=== PATIENT | female | born 1960 | race Caucasian/White ===

== ENCOUNTER 2017-01-02 17:48 | Emergency (ER) | payer BC ==
[~2017-01-02] VITALS: Ht 160 cm; Wt 78.8 kg
[~2017-01-02 17:48] MED LIST: IBUP800T25 PO
[2017-01-02 17:55] VITALS: Ht 160 cm; Wt 78.8 kg
[2017-01-02 20:06] LABS: ADD SCAN DIFF NO
[2017-01-02 20:14] LABS: BASOPHIL # 0.1 10^3/ul (0.0-0.1); BASOPHILS % 0.7 % (0.0-2.0); EOSINOPHILS # 0.4 10^3/ul (0.0-0.5); EOSINOPHILS % 3.7 % (0.0-7.0); HEMATOCRIT 41.6 % (37.0-47.0); LYMPHOCYTES # 3.1 10^3/ul (0.8-2.9); LYMPHOCYTES % 33.2 % (15.0-51.0); MEAN CORPUSCULAR HGB CONC 33.7 g/dl (32.0-37.0); MEAN CORPUSCULAR VOLUME 86.1 fl (82.0-101.0); MEAN PLATELET VOLUME 10.7 fl (7.4-10.4); MONOCYTE # 0.6 10^3/ul (0.3-0.9); MONOCYTES % 6.8 % (0.0-11.0); NEUTROPHIL # 5.2 10^3/ul (1.6-7.5); NEUTROPHILS % 55.2 % (39.0-77.0); PLATELET COUNT 377 10^3/UL (140-415); RED BLOOD COUNT 4.83 10^6/ul (4.20-5.40); RED CELL DISTRIBUTION WIDTH 12.8 % (11.5-14.5); WHITE BLOOD COUNT 9.4 10^3/ul (4.8-10.8)
[2017-01-02 20:23] LABS: INR 0.87; PROTIME 11.8 Sec (12.2-14.2); PT RATIO 0.9
[2017-01-02 20:24] LABS: PARTIAL THROMBOPLASTIN TIME 39.9 Sec (25.0-35.0)
[2017-01-02 20:32] LABS: ALANINE AMINOTRANSFERASE 26 IU/L (13-69); ALBUMIN 5.1 g/dl (3.3-4.9); ALBUMIN/GLOBULIN RATIO 1.41; ALKALINE PHOSPHATASE 131 IU/L (42-121); ANION GAP 14 (8-16); ASPARTATE AMINO TRANSFERASE 17 IU/L (15-46); BILIRUBIN,INDIRECT 0.1 mg/dl (0-1.1); BILIRUBIN,TOTAL 0.1 mg/dl (0.2-1.3); BLOOD UREA NITROGEN 19 mg/dl (7-20); CALCIUM 10.2 mg/dl (8.4-10.2); CARBON DIOXIDE 28 mmol/L (21-31); CHLORIDE 100 mmol/L (97-110); CREATININE 0.69 mg/dl (0.44-1.00); GLUCOSE 252 mg/dl (70-220); POTASSIUM 3.9 mmol/L (3.5-5.1); SODIUM 138 mmol/L (135-144); TOTAL PROTEIN 8.7 g/dl (6.1-8.1)
[2017-01-02 20:41] LABS: D-DIMER 591.75 ng/ml (<460)
[2017-01-02 20:49] LABS: TROPONIN-I < 0.012 ng/ml (0.00-0.12)
--- NOTE | 2017-01-02 20:54 | RADRPT ---
PROCEDURE: Ultrasound of the bilateral lower extremity venous system. CLINICAL INDICATION: Bilateral leg pain and swelling, deep venous thrombosis TECHNIQUE: Echeverria scale with and without compression, color doppler, spectral doppler of the venous system of the bilateral lower extremities was performed. Venous augmentation maneuvers were utilized . COMPARISON: No prior studies are available for comparison. FINDINGS: RIGHT: Common femoral vein: Patent. Femoral vein: Patent. Popliteal vein: Patent. Calf veins: Patent. No soft tissue abnormalities are identified. LEFT: Common femoral vein: Patent. Femoral vein: Patent. Popliteal vein: Patent. Calf veins: Patent. No soft tissue abnormalities are identified. IMPRESSION: No evidence of a deep vein thrombosis within the bilateral lower extremities. RPTAT: AADD .Kodak Chan MD, MD Date Time Electronically viewed and signed by .Kodak Chan MD, on 01/02/2017 20:54 .B/
--- NOTE | 2017-01-02 22:11 | RADRPT ---
PROCEDURE: Chest. CLINICAL INDICATION: Chest pain. TECHNIQUE: Single frontal view of the chest was obtained. COMPARISON: None. FINDINGS: The cardiac silhouette is magnified. The aortic arch is unremarkable. There is no focal consolidat ion, vascular congestion or pleural effusion. There is no pneumothorax. IMPRESSION: No evidence for active cardiopulmonary disease. .Allan Deluca MD, MD Date Time Electronically viewed and signed by .Allan Deluca MD, MD on 01/02/2017 22:11 .T/
--- NOTE | 2017-01-02 22:19 | ERD ---
ER Documentation Chief Complaint Date/Time DATE: 01/02/17 TIME: 22:10 Chief Complaint BODY ACHES, CHILLS X 4 DAYS HPI This is a 56-year-old female with past medical history for anemia, hypercholesterolemia and diabetes mellitus type 2, presenting to the emergency department with multiple complaints. Patient states she has had bilateral lower extremity pain and burning that started at her feet and has traveled upward to bilateral Bilateral posterior thighs over the past 3 months. Patient reports generalized body aches and chills. No fevers. Patient has intermittent chest pain that radiates to upper back with shortness of breath. Patient also reports chest wall pain. No cough, stridor or labored breathing. Patient has nausea however no vomiting or diarrhea. No abdominal pain. ROS All systems reviewed and are negative except as per history of present illness. Medications Home Meds Active Scripts Ibuprofen* (Ibuprofen*) 800 Mg Tab, 800 MG PO Q6H Y for PAIN, #30 TAB Prov:THEODORE BERTRAND PA-C 01/10/15 Allergies Allergies: Coded Allergies: No Known Allergy (Unverified , 01/10/15) PMhx/Soc Hx Miscellaneous Medical Probl: Yes (DM) Hx Alcohol Use: No Hx Substance Use: No Hx Tobacco Use: No Smoking Status: Never smoker Physical Exam Vitals Vital Signs Date Time Temp Pulse Resp B/P Pulse Ox O2 Delivery O2 Flow Rate FiO2 01/02/17 17:55 98.1 99 18 117/70 99 Physical Exam Const: No acute distress, alert Head: Atraumatic Eyes: Normal Conjunctiva ENT: Normal External Ears, Nose and Mouth. Neck: Full range of motion..~ No meningismus. Resp: Clear to auscultation bilaterally. No wheezing, rhonchi or crackles. No stridor or labored breathing. Cardio: Regular rate and rhythm, no murmurs Abd: Soft, non tender, non distended. Normal bowel sounds Skin: No petechiae or rashes Back: No midline or flank tenderness. No CVA tenderness. Ext: No cyanosis, or edema Neur: Awake and alert Psych: Normal Mood and Affect Result Diagram: 01/02/17195401/02/171954 Results 24 hrs Laboratory Tests Test 01/02/17 19:55 White Blood Count 9.410^3/ul Red Blood Count 4.8310^6/ul Hemoglobin 14.0g/dl Hematocrit 41.6% Mean Corpuscular Volume 86.1fl Mean Corpuscular Hemoglobin 29.0pg Mean Corpuscular Hemoglobin Concent 33.7g/dl Red Cell Distribution Width 12.8% Platelet Count 79950^3/UL Mean Platelet Volume 10.7fl Neutrophils % 55.2% Lymphocytes % 33.2% Monocytes % 6.8% Eosinophils % 3.7% Basophils % 0.7% Nucleated Red Blood Cells % 0.0/100WBC Neutrophils # 5.210^3/ul Lymphocytes # 3.110^3/ul Monocytes # 0.610^3/ul Eosinophils # 0.410^3/ul Basophils # 0.110^3/ul Nucleated Red Blood Cells # 0.010^3/ul Prothrombin Time 11.8Sec Prothrombin Time Ratio 0.9 INR International Normalized Ratio 0.87 Activated Partial Thromboplast Time 39.9Sec D-Dimer 591.75ng/ml D-Dimer Comment Sodium Level 138mmol/L Potassium Level 3.9mmol/L Chloride Level 100mmol/L Carbon Dioxide Level 28mmol/L Anion Gap 14 Blood Urea Nitrogen 19mg/dl Creatinine 0.69mg/dl Glucose Level 252mg/dl Calcium Level 10.2mg/dl Total Bilirubin 0.1mg/dl Direct Bilirubin 0.00mg/dl Indirect Bilirubin 0.1mg/dl Aspartate Amino Transf (AST/SGOT) 17IU/L Alanine Aminotransferase (ALT/SGPT) 26IU/L Alkaline Phosphatase 131IU/L Troponin I < 0.012ng/ml Total Protein 8.7g/dl Albumin 5.1g/dl Globulin 3.60g/dl Albumin/Globulin Ratio 1.41 Procedures/[place] [id number] Radiology Main Line: [phone] DIAGNOSTIC IMAGING REPORT Patient: GIRISH APARICIO : 1960 Age: 56 Sex: F MR #: [id number] DOS: 01/02/171943 Ordering MD: REYNA RIVERS NP Location: [facility] Room/Bed: PROCEDURE: Chest. CLINICAL INDICATION: Chest pain. TECHNIQUE: Single frontal view of the chest was obtained. COMPARISON: None. FINDINGS: The cardiac silhouette is magnified. The aortic arch is unremarkable. There is no focal consolidation, vascular congestion or pleural effusion. There is no pneumothorax. IMPRESSION: No evidence for active cardiopulmonary disease. [place] [id number] Radiology Main Line: [phone] DIAGNOSTIC IMAGING REPORT Patient: GIRISH APARICIO : 1960 Age: 56 Sex: F MR #: [id number] DOS: 01/02/171943 Ordering MD: REYNA RIVERS NP Location: [facility] Room/Bed: PROCEDURE: Ultrasound of the bilateral lower extremity venous system. CLINICAL INDICATION: Bilateral leg pain and swelling, deep venous thrombosis TECHNIQUE: Echeverria scale with and without compression, color doppler, spectral doppler of the venous system of the bilateral lower extremities was performed. Venous augmentation maneuvers were utilized. COMPARISON: No prior studies are available for comparison. FINDINGS: RIGHT: Common femoral vein: Patent. Femoral vein: Patent. Popliteal vein: Patent. Calf veins: Patent. No soft tissue abnormalities are identified. LEFT: Common femoral vein: Patent. Femoral vein: Patent. Popliteal vein: Patent. Calf veins: Patent. No soft tissue abnormalities are identified. IMPRESSION: No evidence of a deep vein thrombosis within the bilateral lower extremities. EKG: As interpreted by myself and Dr. Arreaga. Rate/Rhythm: Normal sinus rhythm with heart rate 86 bpm QRS, ST, T-waves: No changes consistent w/ acute ischemia Impression: No evidence of ischemia or arrhythmia MDM: This is a 56-year-old female presenting to the emergency department with multiple complaints. Patient states for the past 3 months she has had pain and burning that started at her feet and has traveled upward to posterior calf and thighs. No swelling or erythema. Patient also reports intermittent chest pain that radiates to upper back with shortness of breath. Patient also has chest wall pain. Physical exam is overall unremarkable. Vital signs are stable. No fevers or chills. Heart rate is normal, no tachycardia. EKG shows normal sinus rhythm with heart rate 86 bpm. Chest x-ray as reviewed by radiologist as no evidence for active cardiopulmonary disease. Ultrasound of bilateral lower extremities venous system as reviewed by radiologist as no evidence of a deep vein thrombosis within the bilateral lower extremities. CBC shows no significant anemia or infection CMP shows glucose 252, mildly elevated alkaline phosphatase of 131 otherwise unremarkable. Patient has history of diabetes type 2 and is currently taking metformin and Januvia. PT 11.8 INR 0.87 PTT 39.9 D-dimer 591.75 Influenza swab a and B negative Consulted Dr. Arreaga regarding this patient and we agree that patient is appropriate for outpatient management. Patient remains alert, oriented and cooperative. Vital signs are stable. Oxygen saturation 99% on room air. Respirations 18. No fevers or chills. Differential diagnosis includes but not limited to pneumonia, bronchitis, pleurisy, costochondritis, gastroesophageal reflux,musculoskeletal chest pain and esophageal spasm. Low suspicion for acute coronary syndrome, pulmonary embolism, pneumothorax, aortic dissection and myocardial infarction. Patient is appropriate for outpatient management and will be discharged as stable. Instructed patient to follow up with primary care provider in the next 24-48 hours. Return to ED for worsening pain, abdominal pain, vomiting, diarrhea , high fever or any new or worsening symptoms. Patient verbalizes understanding. All questions answered at discharge. Departure Diagnosis: Primary Impression: Chest pain Chest pain type: unspecified Qualified Code: R07.9 - Chest pain, unspecified type Condition: Stable REYNA RIVERS NP Jan 02, 2017 22:19
[2017-01-02 22:34] VITALS: BP 111/77; PULSE 76; RESP 16; TEMP 98.2
== END 2017-01-02 22:36 | disposition home or self-care (01) ==
LOC: FTE 17:48
DX: R07.9 Chest pain, unspecified (principal); E11.9 Type 2 diabetes mellitus without complications
CPT/HCPCS: 71010; 80053; 84484; 85025; 85378; 85610; 85730; 87400; 93005; 93970; Z7502

== ENCOUNTER 2017-01-26 23:09 | Emergency (ER) | payer BC ==
[~2017-01-26] VITALS: Ht 152.4 cm; Wt 83.0 kg
[2017-01-26 23:17] VITALS: Ht 152.4 cm; Wt 83.0 kg
[2017-01-27] MEDS ORDERED: METF500T4 PO (00:22)
[2017-01-27] MEDS ORDERED: SITA25TA3 PO (00:22)
--- NOTE | 2017-01-27 00:22 | ERD ---
ER Documentation Chief Complaint Date/Time DATE: 01/27/17 TIME: 00:21 Chief Complaint generalize body aches x 1 week HPI 56-year-old female presents here in emergency department for complaints of generalized burning sensation all over the body and bodyaches for 1 week now. Patient is diabetic, takes medications as prescribed. Patient denies any trauma on affected areas. Patient denies any joint pains. Patient denies any fever or chills. Patient denies any rash. Patient denies any itching. Patient's complaining of pain as burning pain, 6/10 scale, feels it all over the body. States that she feels that she is on fire at times. ROS All systems reviewed and are negative except as per history of present illness. Medications Home Meds Active Scripts Ibuprofen* (Ibuprofen*) 800 Mg Tab, 800 MG PO Q6H Y for PAIN, #30 TAB Prov:THEODORE BERTRAND PA-C 01/10/15 Reported Medications Sitagliptin* (Januvia*) Unknown Strength Tablet, PO DAILY, #30 TAB 01/27/17 Metformin* (Glucophage*) Unknown Strength Tab, PO BID, #20 TAB 01/27/17 Allergies Allergies: Coded Allergies: No Known Allergy (Unverified , 01/10/15) PMhx/Soc Medical and Surgical Hx: pt denies Surgical Hx History of Surgery: No Anesthesia Reaction: No Hx Neurological Disorder: No Hx Respiratory Disorders: No Hx Cardiac Disorders: No Hx Psychiatric Problems: No Hx Miscellaneous Medical Probl: Yes (DM) Hx Alcohol Use: No Hx Substance Use: No Hx Tobacco Use: No Smoking Status: Never smoker FmHx Family History: No coronary disease, No diabetes, No other Physical Exam Vitals Vital Signs Date Time Temp Pulse Resp B/P Pulse Ox O2 Delivery O2 Flow Rate FiO2 01/26/17 23:17 97.7 85 20 170/80 99 Physical Exam GENERAL: The patient is well developed and appropriate for usual state of health, in no apparent distress. CHEST: Clear to auscultation bilaterally. There are no rales, wheezes or rhonchi. HEART: Regular rate and rhythm. No murmurs, clicks, rubs or gallops. No S3 or S4. ABDOMEN: Soft, nontender and nondistended. Good bowel sounds. No rebound or guarding. No gross peritonitis. No gross organomegaly or masses. No Ceja sign or McBurney point tenderness. BACK: No midline or flank tenderness. EXTREMITIES: Equal pulses bilaterally. There is no peripheral clubbing, cyanosis or edema. No focal swelling or erythema. Full range of motion. Grossly neurovascularly intact. NEURO: Alert and oriented. Cranial nerves 2-12 intact. Motor strength in all 4 extremities with 5/5 strength. Sensation grossly intact. Normal speech and gait. SKIN: There is no apparent rash or petechia. The skin is warm and dry. HEMATOLOGIC AND LYMPHATIC: There is no evidence of excessive bruising or lymphedema. No gross cervical, axillary, or inguinal lymphadenopathy. Result Diagram: 01/27/173001/27/17 003 Results 24 hrs Laboratory Tests Test 01/27/17 00:31 White Blood Count 8.310^3/ul Red Blood Count 4.2110^6/ul Hemoglobin 11.9g/dl Hematocrit 36.9% Mean Corpuscular Volume 87.6fl Mean Corpuscular Hemoglobin 28.3pg Mean Corpuscular Hemoglobin Concent 32.2g/dl Red Cell Distribution Width 13.2% Platelet Count 26140^3/UL Mean Platelet Volume 10.5fl Neutrophils % 62.1% Lymphocytes % 27.1% Monocytes % 7.0% Eosinophils % 2.8% Basophils % 0.6% Nucleated Red Blood Cells % 0.0/100WBC Neutrophils # 5.210^3/ul Lymphocytes # 2.310^3/ul Monocytes # 0.610^3/ul Eosinophils # 0.210^3/ul Basophils # 0.110^3/ul Nucleated Red Blood Cells # 0.010^3/ul Erythrocyte Sedimentation Rate 44mm/Hr Urine Color YELLOW Urine Clarity SLIGHTLY CLOUDY Urine pH 6.0 Urine Specific [place] 1.018 Urine Ketones NEGATIVEmg/dL Urine Nitrite NEGATIVEmg/dL Urine Bilirubin NEGATIVEmg/dL Urine Urobilinogen 1+mg/dL Urine Leukocyte Esterase NEGATIVELeu/ul Urine Microscopic RBC 1/HPF Urine Microscopic WBC 1/HPF Urine Squamous Epithelial Cells FEW/HPF Urine Bacteria FEW/HPF Urine Mucus FEW/HPF Urine Hemoglobin NEGATIVEmg/dL Urine Glucose 1+mg/dL Urine Total Protein NEGATIVEmg/dl Sodium Level 143mmol/L Potassium Level 3.9mmol/L Chloride Level 101mmol/L Carbon Dioxide Level 27mmol/L Anion Gap 19 Blood Urea Nitrogen 15mg/dl Creatinine 0.85mg/dl Glucose Level 239mg/dl Calcium Level 9.7mg/dl Total Bilirubin 0.1mg/dl Direct Bilirubin 0.00mg/dl Indirect Bilirubin 0.1mg/dl Aspartate Amino Transf (AST/SGOT) 22IU/L Alanine Aminotransferase (ALT/SGPT) 30IU/L Alkaline Phosphatase 109IU/L C-Reactive Protein 1.1mg/dl Total Protein 8.4g/dl Albumin 4.7g/dl Globulin 3.70g/dl Albumin/Globulin Ratio 1.27 Lipase 130U/L Current Medications Medications (Trade) Dose Ordered Sig/[place] Route PRN Reason Start Time Stop Time Status Last Admin Dose Admin Acetaminophen/ Hydrocodone Bitart ([place] (5/325)) 1 tab ONCE ONCE PO 01/27/17 00:30 01/27/17 00:31 DC 01/27/17 00:33 Patient was given medication for pain here in emergency department, after treatment, patient verbalized feeling much better. Patient's pain is improved. Procedures/MDM Medical decision making: Patient symptoms nonspecific at this time, possible autoimmune disorder, patient has elevated ESR and CRP, possibly inflammatory related to autoimmune. At this time, no leukocytosis, no bandemia. No symptoms of any acute infection. No symptoms of any acidosis. Blood sugar is elevated, but does not have any symptoms of any decompensation. No symptoms of any rash. No erythema, no cellulitis. Patient was given prescription for [place] for severe pain, is advised to follow-up with primary care doctor in 1-2 days for reevaluation of symptoms. Patient was advised to stay possibly resident program specialist for further evaluation. Patient was advised to return to emergency department for any worsening symptoms. Departure Diagnosis: Primary Impression: Body aches Condition: Stable Additional Instructions: SEE RESEARCH PROGRAM MANAGER MAYRA LA NP Jan 27, 2017 00:22
[2017-01-27] MEDS ORDERED: HYDROCODONE/APAP (5/325) TAB PO ONE (00:30)
[2017-01-27 00:43] LABS: BASOPHIL # 0.1 10^3/ul (0.0-0.1); BASOPHILS % 0.6 % (0.0-2.0); EOSINOPHILS # 0.2 10^3/ul (0.0-0.5); EOSINOPHILS % 2.8 % (0.0-7.0); HEMATOCRIT 36.9 % (37.0-47.0); HEMOGLOBIN 11.9 g/dl (12.0-16.0); LYMPHOCYTES # 2.3 10^3/ul (0.8-2.9); LYMPHOCYTES % 27.1 % (15.0-51.0); MEAN CORPUSCULAR HEMOGLOBIN 28.3 pg (29.0-33.0); MEAN CORPUSCULAR HGB CONC 32.2 g/dl (32.0-37.0); MEAN CORPUSCULAR VOLUME 87.6 fl (82.0-101.0); MEAN PLATELET VOLUME 10.5 fl (7.4-10.4); MONOCYTE # 0.6 10^3/ul (0.3-0.9); NEUTROPHIL # 5.2 10^3/ul (1.6-7.5); NEUTROPHILS % 62.1 % (39.0-77.0); PLATELET COUNT 342 10^3/UL (140-415); RED BLOOD COUNT 4.21 10^6/ul (4.20-5.40); RED CELL DISTRIBUTION WIDTH 13.2 % (11.5-14.5); WHITE BLOOD COUNT 8.3 10^3/ul (4.8-10.8)
[2017-01-27 00:56] LABS: ADD UMIC NO; UR ASCORBIC ACID NEGATIVE (NEGATIVE); UR BACTERIA FEW /HPF (NONE SEEN); UR BILIRUBIN (Dip) NEGATIVE (NEGATIVE); UR BLOOD (Dip) NEGATIVE (NEGATIVE); UR CLARITY SLIGHTLY CLOUDY (CLEAR); UR COLOR YELLOW (YELLOW); UR GLUCOSE (Dip) 1+ mg/dL (NEGATIVE); UR KETONES (Dip) NEGATIVE (NEGATIVE); UR LEUKOCYTE ESTERASE (Dip) NEGATIVE Leu/ul (NEGATIVE); UR MUCUS FEW /HPF (NONE SEEN); UR NITRITE (Dip) NEGATIVE (NEGATIVE); UR RBC 1 /HPF (0-5); UR SPECIFIC GRAVITY (Dip) 1.018 (1.003-1.030); UR SQUAMOUS EPITHELIAL CELL FEW /HPF (FEW); UR TOTAL PROTEIN (Dip) NEGATIVE (NEGATIVE); UR UROBILINOGEN (Dip) 1+ mg/dL (NEGATIVE)
[2017-01-27 01:16] LABS: ALBUMIN 4.7 g/dl (3.3-4.9); ALBUMIN/GLOBULIN RATIO 1.27; BILIRUBIN,INDIRECT 0.1 mg/dl (0-1.1); BILIRUBIN,TOTAL 0.1 mg/dl (0.2-1.3); C-REACTIVE PROTEIN 1.1 mg/dl (0.0-0.9); CALCIUM 9.7 mg/dl (8.4-10.2); CREATININE 0.85 mg/dl (0.44-1.00); POTASSIUM 3.9 mmol/L (3.5-5.1); TOTAL PROTEIN 8.4 g/dl (6.1-8.1)
[2017-01-27] MEDS ORDERED: HYDR-906 PO (02:24)
== END 2017-01-27 02:42 | disposition home or self-care (01) ==
LOC: FTE 23:09
DX: R52 Pain, unspecified (principal); E11.9 Type 2 diabetes mellitus without complications; Z79.84 Long term (current) use of oral hypoglycemic drugs
CPT/HCPCS: 36415; 80053; 81001; 83690; 85025; 85651; 86140; Z7502; Z7610; 81003; 99283

== ENCOUNTER 2017-05-05 16:42 | Emergency (ER) | payer BC ==
[~2017-05-05] VITALS: Wt 92.1 kg
[~2017-05-05 16:42] MED LIST changes: +HYDR-906 PO; +METF500T4 PO; +SITA25TA3 PO
[2017-05-05] MEDS ORDERED: KETOROLAC 30 MG INJ IM STA (17:18)
[2017-05-05] MEDS ORDERED: NAPR-260 PO (17:25)
[2017-05-05] MEDS ORDERED: TRAM50TA2 PO (17:27)
--- NOTE | 2017-05-05 17:35 | ERD ---
ER Documentation Chief Complaint Chief Complaint BILATERAL LEG PAIN X 3 DAYS HPI This is a 56-year-old female who presents the emergency department today complaining of foot pain for the past 4 days. States that she is having pain with walking and that she has a history of diabetes. States that it feels like her feet are "on fire". States that she feels some numbness and tingling. That she takes gabapentin. States her blood sugar usually runs about 150. ROS All systems reviewed and are negative except as per history of present illness. Medications Home Meds Active Scripts Tramadol HCl (Tramadol HCl) 50 Mg Tablet, 50 MG PO Q4 Y for PAIN, #20 TAB Prov:JENNY LINDSEY PA-C 05/05/17 Naproxen* (Naprosyn*) 500 Mg Tablet, 500 MG PO BID Y for PAIN AND/OR INFLAMMATION, #30 TAB Prov:JENNY LINDSEY PA-C 05/05/17 Hydrocodone/Acetaminophen ([place] 5-325 Tablet) 1 Each Tablet, 1 TAB PO Q6H Y for SEVERE PAIN LEVEL 7-10, #20 TAB Prov:MAYRA LA NP 01/27/17 Ibuprofen* (Ibuprofen*) 800 Mg Tab, 800 MG PO Q6H Y for PAIN, #30 TAB Prov:THEODORE BERTRAND PA-C 01/10/15 Reported Medications Sitagliptin* (Januvia*) Unknown Strength Tablet, PO DAILY, #30 TAB 01/27/17 Metformin* (Glucophage*) Unknown Strength Tab, PO BID, #20 TAB 01/27/17 Allergies Allergies: Coded Allergies: No Known Allergy (Unverified , 01/10/15) PMhx/Soc History of Surgery: No Anesthesia Reaction: No Hx Neurological Disorder: No Hx Respiratory Disorders: No Hx Cardiac Disorders: No Hx Psychiatric Problems: No Hx Miscellaneous Medical Probl: Yes (DM) Hx Alcohol Use: No Hx Substance Use: No Hx Tobacco Use: No Smoking Status: Never smoker Physical Exam Vitals Vital Signs Date Time Temp Pulse Resp B/P Pulse Ox O2 Delivery O2 Flow Rate FiO2 05/05/17 16:46 98.1 102 18 143/83 99 Physical Exam Const: tearful, NAD Head: Atraumatic Eyes: Normal Conjunctiva ENT: Normal External Ears, Nose and Mouth. Neck: Full range of motion..~ No meningismus. Resp: Clear to auscultation bilaterally Cardio: Regular rate and rhythm, no murmurs Abd: Soft, non tender, non distended. Normal bowel sounds Skin: No petechiae or rashes Back: No midline or flank tenderness Ext: No cyanosis, or edema. Bilateral feet with no erythema or warmth. Tenderness to palpation. Full active range of motion of ankle. Pulses 2+. Distal neurovascularly intact. Neur: Awake and alert Psych: Normal Mood and Affect Results 24 hrs Current Medications Medications (Trade) Dose Ordered Sig/[place] Route PRN Reason Start Time Stop Time Status Last Admin Dose Admin Ketorolac Tromethamine (Toradol) 30 mg ONCE STAT IM 05/05/17 17:18 05/05/17 17:19 DC Procedures/MDM This is a 56-year-old female who presents the emergency department today complaining of bilateral foot pain that she describes as burning" feeling on fire and tingling". Patient is afebrile and otherwise well-appearing. She does have a history of diabetes. Patient is currently taking gabapentin. Patient also indicated that she does have problems with her back and a "disc problem" any problem in her shoulder however she denies any leg pain at this time and I do not feel that this is caused by her disc disease or radicular symptoms at this time. There is no erythema or warmth to her feet and I have low suspicion for cellulitis or deep space infection. Her symptoms at this time appear more consistent with diabetic neuropathy. Do not feel the patient requires further workup or imaging at this time. Patient was given Toradol here in the emergency department. I did give her a short course of tramadol to help but she was complaining of some pain with walking and she was tearful. She was also given a short course of Naprosyn for home as well. I did instruct her to follow-up with her primary care doctor and to ask for referral for counseling or psychology services as she appears to be dealing with quite a bit of pain. 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 At this time the patient is stable for discharge and outpatient management. Patient should follow up with their PCP in the next 1-2 days. They may return to the emergency department sooner for any persistent or worsening of symptoms. Patient understood and agreed with the plan. Departure Diagnosis: Primary Impression: Foot pain Laterality: bilateral Qualified Code: M79.671 - Pain in both feet Condition: Fair Patient Instructions: What Is Peripheral Neuropathy? Referrals: ROSA ANTHONY MD (PCP) BAYRON BAH MD, ANTHONY Jr., MD HUANG,NINA AVITIA MD Additional Instructions: Llame al doctor MAANA y denae jeane PAT PARA DENTRO DE 1-2 ALBERTS.Dgale a la secretaria que nosotros le instruimos hacer esta pat.Avise o llame si garza condicin se empeora antes de la pat. Regresa aqui si peor o no mejor. Terminal for severe pain otherwise take Naprosyn or Tylenol or Motrin. Continue taking her gabapentin as prescribed. Follow-up with your primary care doctor for referral to [facility] painter helper and counseling center JENNY LINDSEY PA-C May 05, 2017 17:35
== END 2017-05-05 17:42 | disposition home or self-care (01) ==
LOC: FTE 16:42
DX: M79.671 Pain in right foot (principal); M79.672 Pain in left foot; E11.9 Type 2 diabetes mellitus without complications; Z79.84 Long term (current) use of oral hypoglycemic drugs
CPT/HCPCS: 96372; J1885; Z7502

== ENCOUNTER 2017-06-10 16:00 | Observation (INO) | payer BC ==
[~2017-06-10] VITALS: Ht 160 cm; Wt 84.8 kg
[~2017-06-10 16:00] MED LIST changes: +NAPR-260 PO; +TRAM50TA2 PO
--- NOTE | 2017-06-10 17:59 | ERD ---
ER Documentation Chief Complaint Chief Complaint bilateral leg swelling and sob x 3 days HPI This is a 57-year-old female with a known history of dii-qrjwbox-uqtmbeepn diabetes mellitus and hypertension. She indicates that for the past 3 days she has been having swelling of her bilateral lower extremities and leg pain. She indicates that the pain is exacerbated when she ambulates and better when she lies supine. She denies any recent trauma or prolonged immobilization. She denies any recent travel. She states she has never had any similar symptoms in the past. She denies any flank pain. She has had no frequency urgency or dysuria no gross hematuria. She has had no fevers or shaking or chills. She denies any discoloration of her lower extremities. She indicates that the pain is a dull achy sensation with intermittent cramping. She also indicates that she has been having intermittent shortness of breath. States the shortness of breath is present at rest and is not worse with exertion. She denies a productive or nonproductive cough. She denies any chest pain or pressure that radiates to the neck arm back or jaw. ROS All systems reviewed and are negative except as per history of present illness. Medications Home Meds Reported Medications Sitagliptin* (Januvia*) 100 Mg Tablet, 100 MG PO DAILY, #30 TAB 06/10/17 Metformin Hcl* (Metformin Hcl*) 1,000 Mg Tablet, 1000 MG PO WITH BREAKFAST DINNE , #60 TAB 06/10/17 Gabapentin* (Gabapentin*) 300 Mg Capsule, 300 MG PO BID, #60 CAP 06/10/17 Simvastatin* (Zocor*) 20 Mg Tablet, 20 MG PO QHS, #30 TAB 06/10/17 Glipizide* (Glipizide*) 5 Mg Tablet, 5 MG PO AC BREAKFAST, TAB 06/10/17 Discontinued Reported Medications Sitagliptin* (Januvia*) Unknown Strength Tablet, PO DAILY, #30 TAB 01/27/17 Metformin* (Glucophage*) Unknown Strength Tab, PO BID, #20 TAB 01/27/17 Discontinued Scripts Tramadol HCl (Tramadol HCl) 50 Mg Tablet, 50 MG PO Q4 Y for PAIN, #20 TAB Prov:JENNY LINDSEY PA-C 05/05/17 Naproxen* (Naprosyn*) 500 Mg Tablet, 500 MG PO BID Y for PAIN AND/OR INFLAMMATION, #30 TAB Prov:JENNY LINDSEY PA-C 05/05/17 Hydrocodone/Acetaminophen ([place] 5-325 Tablet) 1 Each Tablet, 1 TAB PO Q6H Y for SEVERE PAIN LEVEL 7-10, #20 TAB Prov:MAYRA LA BECKER TPaulette LOPEZ 01/27/17 Ibuprofen* (Ibuprofen*) 800 Mg Tab, 800 MG PO Q6H Y for PAIN, #30 TAB Prov:THEODORE BERTRAND PA-C 01/10/15 Allergies Allergies: Coded Allergies: No Known Allergy (Unverified , 06/10/17) PMhx/Soc History of Surgery: No Anesthesia Reaction: No Hx Neurological Disorder: No Hx Respiratory Disorders: No Hx Cardiac Disorders: No Hx Psychiatric Problems: No Hx Miscellaneous Medical Probl: Yes (DM) Hx Alcohol Use: No Hx Substance Use: No Hx Tobacco Use: No Physical Exam Vitals Vital Signs Date Time Temp Pulse Resp B/P Pulse Ox O2 Delivery O2 Flow Rate FiO2 06/10/17 20:00 97.9 88 18 144/84 98 Room Air 06/10/17 18:00 97.8 84 18 153/106 99 Room Air 06/10/17 16:12 98.8 87 18 185/95 96 Physical Exam Constitutional:Well-developed. Well-nourished. HEENT:Normocephalic. Atraumatic.Pupils were equal round reactive to light. Moist mucous membranes.No tonsillar exudates. Neck: No nuchal rigidity. No lymphadenopathy. No posterior cervical spine tenderness or step-offs. Respiratory: Not using accessory muscles of respiration.Lungs were clear to auscultation bilaterally. No rhonchi. No rales. No wheezing. Cardiovascular: Regular rate regular rhythm.No murmurs. No rubs were appreciated.S1, S2 normal. Distal pulses are palpable 2+ bilaterally. GI: Abdomen was soft. Nontender. Non Distended. No pulsatile abdominal masses or bruits. No rebound. No guarding. Bowel sounds were present and normal. Muscle skeletal: Full range of motion of both the upper and lower extremities bilaterally.Normal muscle tone. 2+ pitting edema in the bilateral lower extremities with bilateral calf tenderness and no asymmetrical swelling. Skin: No petechia, no purpura. No lesions on the palms or the soles of the feet. No maculopapular rash. NEURO: Patient was alert, awake, orientated x3.No facial droop. Gait observed and normal with no ataxia.Speech had regular rate and rhythm. No focal neurological deficits. Result Diagram: 06/10/17175506/10/176 Results 24 hrs Laboratory Tests Test 06/10/17 17:56 White Blood Count 9.810^3/ul Red Blood Count 4.3810^6/ul Hemoglobin 12.4g/dl Hematocrit 37.7% Mean Corpuscular Volume 86.1fl Mean Corpuscular Hemoglobin 28.3pg Mean Corpuscular Hemoglobin Concent 32.9g/dl Red Cell Distribution Width 12.1% Platelet Count 58782^3/UL Mean Platelet Volume 10.8fl Neutrophils % 60.7% Lymphocytes % 27.8% Monocytes % 7.3% Eosinophils % 2.8% Basophils % 1.0% Nucleated Red Blood Cells % 0.0/100WBC Neutrophils # 5.910^3/ul Lymphocytes # 2.710^3/ul Monocytes # 0.710^3/ul Eosinophils # 0.310^3/ul Basophils # 0.110^3/ul Nucleated Red Blood Cells # 0.010^3/ul Prothrombin Time 12.2Sec Prothrombin Time Ratio 1.0 INR International Normalized Ratio 0.90 Activated Partial Thromboplast Time 30.1Sec D-Dimer 513.15ng/ml D-Dimer Comment Sodium Level 139mmol/L Potassium Level 4.7mmol/L Chloride Level 100mmol/L Carbon Dioxide Level 26mmol/L Anion Gap 18 Blood Urea Nitrogen 13mg/dl Creatinine 0.60mg/dl Glucose Level 292mg/dl Calcium Level 9.9mg/dl Total Bilirubin 0.2mg/dl Direct Bilirubin 0.00mg/dl Indirect Bilirubin 0.2mg/dl Aspartate Amino Transf (AST/SGOT) 31IU/L Alanine Aminotransferase (ALT/SGPT) 31IU/L Alkaline Phosphatase 167IU/L Creatine Kinase 107IU/L Creatine Kinase Index 0.3 Creatinine Kinase MB (Mass) 0.27ng/ml Troponin I 0.018ng/ml B-Type Natriuretic Peptide 312PG/ML Total Protein 8.4g/dl Albumin 4.4g/dl Globulin 4.00g/dl Albumin/Globulin Ratio 1.10 Current Medications Medications (Trade) Dose Ordered Sig/[place] Route PRN Reason Start Time Stop Time Status Last Admin Dose Admin Enoxaparin Sodium (Lovenox) 80 mg ONCE SC 06/10/17 20:30 06/10/17 23:00 06/10/17 21:20 IV Flush 10 ml 10 ml STK-MED ONCE .ROUTE 06/10/17 21:38 06/10/17 21:39 DC Sodium Chloride (NS) 100 ml @ ud STK-MED ONCE .ROUTE 06/10/17 21:38 06/10/17 21:39 DC Iodixanol (Visipaque Locm) 100 ml STK-MED ONCE .ROUTE 06/10/17 21:38 06/10/17 21:39 DC Procedures/MDM The patient presented to the emergency department with shortness of breath. My differential diagnosis included but was not limited to upper airway obstruction , CHF, pulmonary embolism, cardiac ischemia, pneumonia, pneumothorax, anemia, drug overdose, pulmonary edema, COPD or asthma. I obtained a 12-lead EKG tracing to rule out atypical myocardial infarction. 12 Lead EKG tracing ordered and reviewed by myself showed: Normal sinus rhythm of 90 bpm and no arrhythmia. CT interval normal. QRS duration normal. No ST segment elevation No ST segment depression. No changes consistent with acute ischemia. Patient is placed on a cardiac rehabilitation program director continuous pulse oximetry and IV access was established by nursing staff. Patient was a low pretest probability according to the well's criteria for pulmonary embolism. Therefore obtained a d -dimer. D-dimer was elevated and therefore I did obtain a CT scan of the chest which showed no evidence of a pulmonary embolism. Patient had a chest radiograph which showed no pulmonary vascular congestion and BNP was only slightly elevated. Therefore did not feel the patient's symptoms are resolved of congestive heart failure causing the lower extremity edema. There is no signs of renal failure as the patient's BUN and creatinine were within normal limits. Venous duplex ultrasounds of the bilateral lower extremities were ordered and reviewed by myself there is no evidence of a DVT in the right lower extremity however the patient did have a positive calf DVT with occlusive clot in the posterior tibial vein. She was given Lovenox. The patient will be admitted to the hospitalist for further evaluation into the etiology of the lower extremity edema and further treatment of the patient's DVT. Departure Diagnosis: Primary Impression: DVT (deep venous thrombosis) DVT location: lower extremity Affected thrombotic vein of extremity: tibial Chronicity: acute Laterality: left Qualified Code: I82.442 - Acute deep vein thrombosis (DVT) of tibial vein of left lower extremity Additional Impressions: Edema of both legs Hyperglycemia without ketosis Condition: Serious CLOTILDE MCELROY Jun 10, 2017 17:59
[2017-06-10 18:19] LABS: BASOPHIL # 0.1 10^3/ul (0.0-0.1); EOSINOPHILS # 0.3 10^3/ul (0.0-0.5); EOSINOPHILS % 2.8 % (0.0-7.0); HEMATOCRIT 37.7 % (37.0-47.0); HEMOGLOBIN 12.4 g/dl (12.0-16.0); LYMPHOCYTES # 2.7 10^3/ul (0.8-2.9); LYMPHOCYTES % 27.8 % (15.0-51.0); MEAN CORPUSCULAR HEMOGLOBIN 28.3 pg (29.0-33.0); MEAN CORPUSCULAR HGB CONC 32.9 g/dl (32.0-37.0); MEAN CORPUSCULAR VOLUME 86.1 fl (82.0-101.0); MEAN PLATELET VOLUME 10.8 fl (7.4-10.4); MONOCYTE # 0.7 10^3/ul (0.3-0.9); MONOCYTES % 7.3 % (0.0-11.0); NEUTROPHIL # 5.9 10^3/ul (1.6-7.5); NEUTROPHILS % 60.7 % (39.0-77.0); PLATELET COUNT 318 10^3/UL (140-415); RED BLOOD COUNT 4.38 10^6/ul (4.20-5.40); RED CELL DISTRIBUTION WIDTH 12.1 % (11.5-14.5); WHITE BLOOD COUNT 9.8 10^3/ul (4.8-10.8)
--- NOTE | 2017-06-10 18:24 | RADRPT ---
PROCEDURE: Chest x-ray CLINICAL INDICATION: Abdominal pain TECHNIQUE: Chest single view COMPARISON: 01/02/2017 FINDINGS: The heart is normal in size. The pulmonary vessels are normal in caliber. The lungs are clear. Th e costophrenic angles are sharp. The visualized bony thorax is unremarkable. IMPRESSION: No acute cardiopulmonary disease. RPTAT: HH .Raghavendra Santiago MD, Date Time Electronically viewed and signed by .Raghavendra Santiago MD, on 06/10/2017 18:23 .W/
[2017-06-10 18:36] LABS: INR 0.9; PARTIAL THROMBOPLASTIN TIME 30.1 Sec (25.0-35.0); PROTIME 12.2 Sec (11.9-14.9)
[2017-06-10 18:45] LABS: ALBUMIN 4.4 g/dl (3.3-4.9); ALBUMIN/GLOBULIN RATIO 1.1; BILIRUBIN,INDIRECT 0.2 mg/dl (0-1.1); BILIRUBIN,TOTAL 0.2 mg/dl (0.2-1.3); CALCIUM 9.9 mg/dl (8.4-10.2); CREATININE 0.6 mg/dl (0.44-1.00); POTASSIUM 4.7 mmol/L (3.5-5.1); TOTAL PROTEIN 8.4 g/dl (6.1-8.1)
[2017-06-10] MEDS ORDERED: GLIP5TAB13 PO (18:45)
[2017-06-10] MEDS ORDERED: SIMV20TA PO (18:45)
[2017-06-10] MEDS ORDERED: GABA300C16 PO (18:45)
[2017-06-10] MEDS ORDERED: SITA100T8 PO (18:46)
[2017-06-10] MEDS ORDERED: METF1000 PO (18:46)
[2017-06-10 18:52] LABS: D-DIMER 513.15 ng/ml (<460)
[2017-06-10 18:57] LABS: CK-MB 0.27 ng/ml (0.0-2.4); TROPONIN-I 0.018 ng/ml (0.00-0.12)
--- NOTE | 2017-06-10 19:00 | RADRPT ---
PROCEDURE: US Lower extremity Venous. CLINICAL INDICATION: Pain and swelling TECHNIQUE: Multiple sonographic images of the bilateral lower extremity deep venous system was obt ained utilizing grayscale, color-flow, compressive sonography and doppler imaging with augmentation. The images were reviewed on a PACS workstation. COMPARISON: None. FINDINGS: There is normal compressibility and flow within the bilateral common femoral, deep femoral, superfic ial femoral and popliteal veins. Normal respiratory variation and augmentation is seen. There is occlusive clot identified in the left posterior tibial vein. Normal color flow in the right posterior tibial vein. IMPRESSION: 1. Right leg: No evidence of DVT. 2. Left leg: Positive calf DVT with occlusive clot in the posterior tibial vein. Otherwise, there is no DVT in the left lower extremity Report was given to the ER by the neurology technologist. RPTAT: HH .Raghavendra Santiago MD, MD Date Time Electronically viewed and signed by .Raghavendra Santiago MD, on 06/10/2017 19:00 .W/
[2017-06-10] MEDS ORDERED: ENOXAPARIN 80 MG/0.8 ML SYG SC SCH (20:30)
[2017-06-10] MEDS ORDERED: IODIXANOL LOCM 100 ML BTL ONE (21:38)
[2017-06-10] MEDS ORDERED: SOD CHLORIDE 0.9% 100 ML ONE (21:38)
[2017-06-10] MEDS ORDERED: ACETAMINOPHEN 325 MG TAB PO PRN ×2 (22:30→23:30)
[2017-06-10] MEDS ORDERED: ONDANSETRON 4 MG INJ IV PRN (22:30)
[2017-06-10 22:56] VITALS: TEMP 98
--- NOTE | 2017-06-10 23:04 | RADRPT ---
PROCEDURE: CT angiogram of the chest with contrast. CLINICAL INDICATION: Chest pain. TECHNIQUE: CT angiogram of the chest was obtained using a multi-detector high-resolution CT. Con tiguous axial images were obtained during the dynamic injection of 99 cc of Visipaque 320 intravenou s contrast. Coronal and sagittal reformatted images were obtained. 3-D reformatted images were als o obtained. Images were reviewed on a PACS workstation. DICOM images are available. One or more of the following dose reduction techniques were used: - Automated exposure control. - Adjustment of the mA and/or kV according to patient size. - Use of iterative reconstruction technique. Exam CTD/vol = 15.16 mGy. Total exam DLP = 547.68 mGy-cm. COMPARISON: None. FINDINGS: The main pulmonary artery followed to the segmental divisions are well opacified. There is no filli ng defect or evidence of pulmonary embolism. The heart is normal in size. There is no pericardial thickening or effusion. The aorta is tortuous and normal caliber without evidence of aneurysm or di ssection. There is no evidence of chest wall mass. The visualized thyroid is unremarkable. There are no enla rged axillary lymph nodes. There are no enlarged mediastinal or hilar lymph nodes by CT criteria. T here are small calcified right hilar lymph nodes. There is no parenchymal nodule or consolidation. There is no pleural effusion. There is bilateral peribronchial thickening. Limited evaluation of the upper abdomen is unremarkable. IMPRESSION: No evidence of pulmonary embolism or aortic dissection. Bilateral peribronchial thickening compatible with bronchitis. Old granulomatous disease. .Allan Deluca MD, MD Date Time Electronically viewed and signed by .Allan Deluca MD, MD on 06/10/2017 23:04 .T/
[2017-06-10 23:18] LABS: ADD UMIC NO; UR ASCORBIC ACID NEGATIVE (NEGATIVE); UR BILIRUBIN (Dip) NEGATIVE (NEGATIVE); UR BLOOD (Dip) NEGATIVE (NEGATIVE); UR CLARITY CLEAR (CLEAR); UR COLOR YELLOW (YELLOW); UR GLUCOSE (Dip) 3+ mg/dL (NEGATIVE); UR KETONES (Dip) NEGATIVE (NEGATIVE); UR LEUKOCYTE ESTERASE (Dip) NEGATIVE Leu/ul (NEGATIVE); UR NITRITE (Dip) NEGATIVE (NEGATIVE); UR SPECIFIC GRAVITY (Dip) 1.015 (1.003-1.030); UR TOTAL PROTEIN (Dip) NEGATIVE (NEGATIVE); UR UROBILINOGEN (Dip) NEGATIVE (NEGATIVE)
[2017-06-10] MEDS ORDERED: HYDROCODONE/APAP (5/325) TAB PO PRN (23:30)
[2017-06-10] MEDS ORDERED: BISACODYL (EC) 5 MG TAB PO PRN (23:30)
[2017-06-10] MEDS ORDERED: DOCUSATE SODIUM 100 MG CAP PO PRN (23:30)
[2017-06-10] MEDS ORDERED: NACL 0.9% 3 ML SYG IV SCH (23:30)
[2017-06-10] MEDS ORDERED: ONDANSETRON 4 MG TAB PO PRN (23:30)
[2017-06-11 00:05] VITALS: PULSE 79
[2017-06-11 00:18] VITALS: Ht 160 cm; Wt 84.8 kg
[2017-06-11 00:19] VITALS: BP 128/76; PULSE 65; RESP 17
[2017-06-11] MEDS ORDERED: ACCU-CHEK XX SCH (02:00)
[2017-06-11] MEDS ORDERED: morphine 2 MG INJ IV STA (02:12)
[2017-06-11 04:00] VITALS: PULSE 75
--- NOTE | 2017-06-11 07:17 | HP ---
Date/Time of Note Date/Time of Note DATE: 06/11/17 TIME: 07:03 Assessment/Plan VTE Prophylaxis VTE Prophylaxis Intervention: LMWH Lines/Catheters IV [facility]ter [facility]from [facility] Assessment/Plan Chief Complaint/Hosp Course This is a 57-year-old female being admitted to the telemetry floor for: #1 Shortness of breath: Likely secondary to underlying bronchitis. This likely could be viral in nature this time as patient is afebrile and normal white blood cell count. P slightly elevated at 300 in the setting of her having some mild bilateral lower extremity edema I will order an echocardiogram to evaluate. Mucinex as needed. As needed nebs as indicated. #2 left lower extremity DVT: Elevated d-dimer as well as lower extremity ultrasound was positive for DVT. At the current time started on Lovenox 1 mg/ kg every 12 hours. This appears to be unprovoked and a first-time event. Patient is obese however she reports that she is active. There appears to be no other inciting factors based on her history. May need further workup however since this is a first-time event we will leave this up to the primary team to decide. She was already unfortunately started on anticoagulation in the ED so coag studies such as protein C and S were not able to be ordered. Need to determine whether patient is a candidate for Coumadin versus novel anticoagulation. #3 bilateral lower extremity edema: The left leg likely secondary to #2 however I am unsure of what is causing the right lower extremity edema. She does have pain to palpation around her ankle as well as warmth. At the current time will order KENYETTA lab. Will also check uric acid level. Will get x-rays of the foot and ankle of the right lower extremity. Proceed with any further imaging is indicated. There are no signs of any DVT in the right lower extremity based on the Doppler ultrasound. Echocardiogram is already been ordered in the setting of #1 and an elevated bnp. Pain also could be secondary to diabetic neuropathy continue gabapentin. #4 diabetes mellitus: Check hemoglobin A1c, will hold all medications, insulin sliding scale #5 DVT GI prophylaxis: The current time she is on therapeutic Lovenox, no GI prophylaxis indicated Further treatment strategy will be implemented as per the clinical course Problems: HPI/ROS Admit Date/Time Admit Date/Time Jun 10, 2017 at 22:06 Hx of Present Illness Chief complaint: Bilateral lower leg swelling and pain This is a 57-year-old female with a known history of ogv-oxljgdi-smnvfytii diabetes mellitus and hypertension. She indicates that for the past 3 days she has been having swelling of her bilateral lower extremities and leg pain. She indicates that the pain is exacerbated when she ambulates and better when she lies supine. She denies any recent trauma or prolonged immobilization. She denies any recent travel. She states she has never had any similar symptoms in the past. She denies any flank pain. She has had no frequency urgency or dysuria no gross hematuria. She has had no fevers or shaking or chills. She denies any discoloration of her lower extremities. She indicates that the pain is a dull achy sensation with intermittent cramping. She also indicates that she has been having intermittent shortness of breath. States the shortness of breath is present at rest and is not worse with exertion. She does report a productive cough with clear phlegm, denies any fevers. She denies any chest pain or pressure that radiates to the neck arm back or jaw. Denies any use of control pills. Denies smoking. Allergies: NKDA Medications: See TREMAYNE BUTLER Const: As per HPI Eyes : No pain discharge or redness or change in visual acuity ENT: No pain, sore throat, congestion, congestion, dysphagia or discharge Respiratory: As per HPI Cardiovascular: No chest pain, palpitation, PND, or edema GI : no change in appetite, abdominal pain, nausea, vomiting, diarrhea, constipation, or change in the color his stool Genitourinary: No dysuria, hematuria, flank pain , discharge or CVA tenderness Musculoskeletal: As per HPI Skin: No rash, bruising or hives Neuro: No headache, dizziness, syncope, seizure, focal weakness Endocrine: No polyuria, polydipsia, temperature intolerance Psych: No hallucination, depression, anxiety or suicidal ideation PMH/Family/Social Past Medical History Diabetes mellitus, hypertension Past Surgical History Past Surgical Hx: no surgical history Family History Significant Family History: no pertinent family hx Social History Alcohol Use: none Smoking Status: Never smoker Drug Use: none Exam/Review of Systems Vital Signs Vitals Vital Signs Date Time Temp Pulse Resp B/P Pulse Ox O2 Delivery O2 Flow Rate FiO2 06/11/17 04:00 75 06/11/17 00:19 98.2 17 128/76 98 Room Air Exam Exam General: Well-developed female lying in bed in no acute distress HEENT: Atraumatic, normocephalic. The pupils are equal, round and reactive. Extraocular motor are intact Neck: Supple with full range of motion. No rigidity or meningismus Chest: Nontender Lungs: Clear to auscultation bilaterally no crackles rales or wheezing Heart: Normal S1-S2, Regular rhythm and rate. No murmur, S3, or S4 Abdomen: Soft , nontender, nondistended , bowel sounds are present. No guarding no rebound tenderness , No masses or organomegaly. No costovertebral temporal angle mass Extremities: Bilateral lower extremity pain at the level of the left ankle as well as around the right ankle and right foot, mild warmth felt bilateral lower extremities. Non-tender to palpation of the bilateral calves. No rash observed bilaterally. Neurologic: Normal mental status, speech normal, cranial nerves II through XII are intact, motor and sensory are intact, no focal weakness Additional Comments PROCEDURE: CT angiogram of the chest with contrast. CLINICAL INDICATION: Chest pain. TECHNIQUE: CT angiogram of the chest was obtained using a multi-detector high -resolution CT. Contiguous axial images were obtained during the dynamic injection of 99 cc of Visipaque 320 intravenous contrast. Coronal and sagittal reformatted images were obtained. 3-D reformatted images were also obtained. Images were reviewed on a PACS workstation. DICOM images are available. One or more of the following dose reduction techniques were used: - Automated exposure control. - Adjustment of the mA and/or kV according to patient size. - Use of iterative reconstruction technique. Exam CTD/vol = 15.16 mGy. Total exam DLP = 547.68 mGy-cm. COMPARISON: None. FINDINGS: The main pulmonary artery followed to the segmental divisions are well opacified. There is no filling defect or evidence of pulmonary embolism. The heart is normal in size. There is no pericardial thickening or effusion. The aorta is tortuous and normal caliber without evidence of aneurysm or dissection. There is no evidence of chest wall mass. The visualized thyroid is unremarkable. There are no enlarged axillary lymph nodes. There are no enlarged mediastinal or hilar lymph nodes by CT criteria. There are small calcified right hilar lymph nodes. There is no parenchymal nodule or consolidation. There is no pleural effusion. There is bilateral peribronchial thickening. Limited evaluation of the upper abdomen is unremarkable. IMPRESSION: No evidence of pulmonary embolism or aortic dissection. Bilateral peribronchial thickening compatible with bronchitis. Old granulomatous disease. .Allan Deluca MD, MD Date Time Electronically viewed and signed by .Allan Deluca MD, MD on 06/10/2017 23:04 .T/ CC: CLOTILDE MCELROY PROCEDURE: Chest x-ray CLINICAL INDICATION: Abdominal pain TECHNIQUE: Chest single view COMPARISON: 01/02/2017 FINDINGS: The heart is normal in size. The pulmonary vessels are normal in caliber. The lungs are clear. The costophrenic angles are sharp. The visualized bony thorax is unremarkable. IMPRESSION: No acute cardiopulmonary disease. RPTAT: HH .Raghavendra Santiago MD, MD Date Time Electronically viewed and signed by .Raghavendra Santiago MD, MD on 06/10/2017 18:23 .W/ CC: CLOTILDE MCELROY PROCEDURE: US Lower extremity Venous. CLINICAL INDICATION: Pain and swelling TECHNIQUE: Multiple sonographic images of the bilateral lower extremity deep venous system was obtained utilizing grayscale, color-flow, compressive sonography and doppler imaging with augmentation. The images were reviewed on a PACS workstation. COMPARISON: None. FINDINGS: There is normal compressibility and flow within the bilateral common femoral, deep femoral, superficial femoral and popliteal veins. Normal respiratory variation and augmentation is seen. There is occlusive clot identified in the left posterior tibial vein. Normal color flow in the right posterior tibial vein. IMPRESSION: 1. Right leg: No evidence of DVT. 2. Left leg: Positive calf DVT with occlusive clot in the posterior tibial vein. Otherwise, there is no DVT in the left lower extremity Report was given to the ER by the pet technologist. RPTAT: HH .Raghavendra Santiago MD, Date Time Electronically viewed and signed by .Raghavendra Santiago MD, on 06/10/2017 19:00 .W/ CC: CLOTILDE MCELROY Labs Result Diagram: 06/10/17175506/10/171755 Medications Medications Current Medications Gabapentin (Neurontin) 300 mg BID PO ; Start 06/11/17 at 09:00 Atorvastatin Calcium (Lipitor) 10 mg QHS PO ; Start 06/11/17 at 21:00 Ondansetron HCl (Zofran Tab) 4 mg Q6H PRN PO NAUSEA AND/OR VOMITING; Start 05/17 at 23:30 Acetaminophen (Tylenol Tab) 650 mg Q6H PRN PO PAIN LEVEL 1-3 OR FEVER; Start 06/10/17 at 23:30 Acetaminophen/ Hydrocodone Bitart ([place] (5/325)) 1 tab Q6H PRN PO PAIN LEVEL 4 -6 Last administered on 06/11/17 00:40; Admin Dose 1 TAB; Start 06/10/17 at 23:30 Docusate Sodium (Colace) 100 mg Q12H PRN PO CONSTIPATION; Start 06/10/17 at 23 :30 Bisacodyl (Dulcolax) 5 mg DAILY PRN PO CONSTIPATION; Start 06/10/17 at 23:30 Diagnostic Test (Pha) (Accu-Chek) 1 ea 02 XX Last administered on 06/11/17 02 :22; Admin Dose 1 EA; Start 06/11/17 at 02:00 MARIE MONTELONGO Jun 11, 2017 07:17
[2017-06-11 08:00] VITALS: BP 152/74; PULSE 64; PULSE 65; RESP 18
[2017-06-11] MEDS ORDERED: INSULIN ASPART [NOVOLOG] 3 ML PEN SC SCH (08:00)
[2017-06-11] MEDS ORDERED: GABAPENTIN 300 MG CAP PO SCH (09:00)
[2017-06-11] MEDS: ENOXAPARIN 100 MG/ML SYG SC SCH ×2 (09:00→09:34)
[2017-06-11] MEDS ORDERED: GLUCAGON 1 MG INJ IM PRN (09:30)
[2017-06-11] MEDS ORDERED: GLUCOSE GEL 15 GRAM TUBE BUCCAL PRN (09:30)
[2017-06-11] MEDS ORDERED: DEXTROSE 50% 50 ML SYRINGE IV PRN ×2 (09:30)
[2017-06-11] MEDS ORDERED: GLUCOSE GEL 15 GRAM TUBE PO PRN ×2 (09:30)
--- NOTE | 2017-06-11 09:50 | RADRPT ---
PROCEDURE: XR RIGHT FOOT. CLINICAL INDICATION: Pain. TECHNIQUE: Three views of the right foot were obtained. COMPARISON: No prior studies are available for comparison. FINDINGS: Bony alignment is within normal limits. There are mild degenerative changes of the first metatarsal phalangeal joint. There is calcaneal enthesopathy present. No evidence for fracture, subluxation, or dislocation. No evidence for radiopaque foreign body. IMPRESSION: 1. Calcaneal enthesopathy. 2. No evidence for fracture, subluxation or dislocation. 3. Mild first metatarsal phalangeal joint arthrosis. RPTAT: XX .Joel Campbell MD, MD Date Time Electronically viewed and signed by .Joel Campbell MD, on 06/11/2017 09:49 .T/
--- NOTE | 2017-06-11 09:52 | RADRPT ---
PROCEDURE: XR Right Ankle 3 Views. CLINICAL INDICATION: Right ankle pain. TECHNIQUE: AP, oblique and lateral views of the right ankle was performed. COMPARISON: None. FINDINGS: The posterior aspect of the calcaneus was not completely included on the lateral image. The osseous structures appear intact. No destructive bony lesions are observed. Interosseous spaces appear nor mal. Small plantar calcaneal heel spur is seen. Potential soft tissue swelling is seen over the medi al malleolus. IMPRESSION: Limited exam with the posterior aspect of the calcaneus not completely included on the lateral image . Repeat lateral image can be considered. Plantar calcaneal heel spur. Potential soft tissue swelling over the medial malleolus. Etiology is uncertain. If there is a histo ry of trauma, ligamentous and tendinous injury is not excluded. If characterization of the ligament s and tendons is needed MRI is recommended. If further characterization is needed CT or MRI could be helpful. If there is high clinical suspicion for bony traumatic injury, further evaluation with CT should be considered. RPTAT: AA .Isaiah Stoddard MD, MD Date Time Electronically viewed and signed by .Isaiah Stoddard MD, on 06/11/2017 09:51 .P/
[2017-06-11] MEDS ORDERED: RIVA15TA PO (11:01)
[2017-06-11] MEDS ORDERED: RIVA20TA5 PO (11:01)
--- NOTE | 2017-06-11 11:03 | PDOCDIS ---
Discharge Instructions DIAGNOSIS Discharge Diagnosis DVT CONDITION Patient Condition: Good FOLLOW UP/APPOINTMENTS Follow-up Plan See your primary doctor within the next 1-2 weeks You have been diagnosed with a blood clot in your leg. For this you have been prescribed a blood thinner called Xarelto. Take 15 mg twice a day for the first 1 week and then take 20 mg once daily for at least three months. Your primary doctor may decide to keep you on this medicine for longer than this. It is very important to speak with your doctor on how long to take this for. LAKHWINDER OCONNELL MD Jun 11, 2017 11:03
--- NOTE | 2017-06-11 11:06 | DS ---
Date/Time of Note Date/Time of Note DATE: 06/11/17 TIME: 11:03 Discharge Summary Admission/Discharge Info Admit Date/Time Jun 10, 2017 at 22:06 Discharge Date/Time Discharge Diagnosis DVT Patient Condition: Fair Hospital Course The patient presented complaining of pain in her feet and legs as well as some cough and sob. Duplex US showed a lower extremity DVT for which she was started on lovenox and transitioned to Xarelto at discharge. She was encouraged to speak with her primary doctor about the duration of therapy for seemingly unprovoked DVT. Pain in her feet is very consistent with diabetic neuropathy. She was encouraged to increase gabapentin to TID if still with pain and to discuss further options with her PMD. Her glucose levels were > 200. She was encoruaged to adhere to her anti-glycemic medications and discuss intensification and even insulin therapy with her PMD as soon as possible. Home Meds Active Scripts Rivaroxaban* (Xarelto*) 20 Mg Tablet, 20 MG PO WITH DINNER for 60 Days, #60 TAB Prov:LAKHWINDER OCONNELL MD 06/11/17 Rivaroxaban* (Xarelto*) 15 Mg Tablet, 15 MG PO BID for 7 Days, #14 TAB Prov:LAKHWINDER OCONNELL MD 06/11/17 Reported Medications Sitagliptin* (Januvia*) 100 Mg Tablet, 100 MG PO DAILY, #30 TAB 06/10/17 Metformin Hcl* (Metformin Hcl*) 1,000 Mg Tablet, 1000 MG PO WITH BREAKFAST DINNE , #60 TAB 06/10/17 Gabapentin* (Gabapentin*) 300 Mg Capsule, 300 MG PO BID, #60 CAP 06/10/17 Simvastatin* (Zocor*) 20 Mg Tablet, 20 MG PO QHS, #30 TAB 06/10/17 Glipizide* (Glipizide*) 5 Mg Tablet, 5 MG PO AC BREAKFAST, TAB 06/10/17 Discontinued Reported Medications Sitagliptin* (Januvia*) Unknown Strength Tablet, PO DAILY, #30 TAB 01/27/17 Metformin* (Glucophage*) Unknown Strength Tab, PO BID, #20 TAB 01/27/17 Discontinued Scripts Tramadol HCl (Tramadol HCl) 50 Mg Tablet, 50 MG PO Q4 Y for PAIN, #20 TAB Prov:JENNY LINDSEY PA-C 05/05/17 Naproxen* (Naprosyn*) 500 Mg Tablet, 500 MG PO BID Y for PAIN AND/OR INFLAMMATION, #30 TAB Prov:JENNY LINDSEY PA-C 05/05/17 Hydrocodone/Acetaminophen ([place] 5-325 Tablet) 1 Each Tablet, 1 TAB PO Q6H Y for SEVERE PAIN LEVEL 7-10, #20 TAB Prov:MAYRA LA NP 01/27/17 Ibuprofen* (Ibuprofen*) 800 Mg Tab, 800 MG PO Q6H Y for PAIN, #30 TAB Prov:THEODORE BERTRAND PA-C 01/10/15 Follow-up Plan See your primary doctor within the next 1-2 weeks You have been diagnosed with a blood clot in your leg. For this you have been prescribed a blood thinner called Xarelto. Take 15 mg twice a day for the first 1 week and then take 20 mg once daily for at least three months. Your primary doctor may decide to keep you on this medicine for longer than this. It is very important to speak with your doctor on how long to take this for. Primary Care Provider Raina Brewer MD Pending Labs Laboratory Tests Test 06/10/17 17:56 06/10/17 22:50 06/10/17 23:02 06/11/17 02:21 White Blood Count 9.810^3/ul (4.8-10.8) Red Blood Count 4.3810^6/ul (4.20-5.40) Hemoglobin 12.4g/dl (12.0-16.0) Hematocrit 37.7% (37.0-47.0) Mean Corpuscular Volume 86.1fl (82.0-101.0) Mean Corpuscular Hemoglobin 28.3pg (29.0-33.0) Mean Corpuscular Hemoglobin Concent 32.9g/dl (32.0-37.0) Red Cell Distribution Width 12.1% (11.5-14.5) Platelet Count 28720^3/UL (140-415) Mean Platelet Volume 10.8fl (7.4-10.4) Neutrophils % 60.7% (39.0-77.0) Lymphocytes % 27.8% (15.0-51.0) Monocytes % 7.3% (0.0-11.0) Eosinophils % 2.8% (0.0-7.0) Basophils % 1.0% (0.0-2.0) Nucleated Red Blood Cells % 0.0/100WBC (0.0-0.0) Neutrophils # 5.910^3/ul (1.6-7.5) Lymphocytes # 2.710^3/ul (0.8-2.9) Monocytes # 0.710^3/ul (0.3-0.9) Eosinophils # 0.310^3/ul (0.0-0.5) Basophils # 0.110^3/ul (0.0-0.1) Nucleated Red Blood Cells # 0.010^3/ul (0.0-0.0) Prothrombin Time 12.2Sec (11.9-14.9) Prothrombin Time Ratio 1.0 INR International Normalized Ratio 0.90 Activated Partial Thromboplast Time 30.1Sec (25.0-35.0) D-Dimer 513.15ng/ml (<460) D-Dimer Comment Sodium Level 139mmol/L (135-144) Potassium Level 4.7mmol/L (3.5-5.1) Chloride Level 100mmol/L (97-110) Carbon Dioxide Level 26mmol/L (21-31) Anion Gap 18 (8-16) Blood Urea Nitrogen 13mg/dl (7-20) Creatinine 0.60mg/dl (0.44-1.00) Glucose Level 292mg/dl (70-220) Calcium Level 9.9mg/dl (8.4-10.2) Total Bilirubin 0.2mg/dl (0.2-1.3) Direct Bilirubin 0.00mg/dl (0.00-0.20) Indirect Bilirubin 0.2mg/dl (0-1.1) Aspartate Amino Transf (AST/SGOT) 31IU/L (15-46) Alanine Aminotransferase (ALT/SGPT) 31IU/L (13-69) Alkaline Phosphatase 167IU/L (42-121) Creatine Kinase 107IU/L (23-200) Creatine Kinase Index 0.3 Creatinine Kinase MB (Mass) 0.27ng/ml (0.0-2.4) Troponin I 0.018ng/ml (0.00-0.12) B-Type Natriuretic Peptide 312PG/ML (0-125) Total Protein 8.4g/dl (6.1-8.1) Albumin 4.4g/dl (3.3-4.9) Globulin 4.00g/dl (1.3-3.2) Albumin/Globulin Ratio 1.10 Urine Color YELLOW (YELLOW) Urine Clarity CLEAR (CLEAR) Urine pH 7.0 (5.0-9.0) Urine Specific [place] 1.015 (1.003-1.030) Urine Ketones NEGATIVEmg/dL (NEGATIVE) Urine Nitrite NEGATIVEmg/dL (NEGATIVE) Urine Bilirubin NEGATIVEmg/dL (NEGATIVE) Urine Urobilinogen NEGATIVEmg/dL (NEGATIVE) Urine Leukocyte Esterase NEGATIVELeu/ul (NEGATIVE) Urine Hemoglobin NEGATIVEmg/dL (NEGATIVE) Urine Glucose 3+mg/dL (NEGATIVE) Urine Total Protein NEGATIVEmg/dl (NEGATIVE) Bedside Glucose 205mg/dL (70-220) 213mg/dL (70-220) Test 06/11/17 06:36 06/11/17 08:27 Carcinoembryonic Antigen 1.0ng/ml (0.0-5.0) Bedside Glucose 226mg/dL (70-220) LAKHWINDER OCONNELL MD Jun 11, 2017 11:06
[2017-06-11 12:00] VITALS: PULSE 75
--- NOTE | 2017-06-11 14:31 | RADRPT ---
Echocardiogram Report Patient Name: GIRISH APARICIO Gender: Female Date: 1960 Study Date: 11-Jun-2017 Veterinary Nurse: Marta Whitten [facility] Location: [id number] Ref. Physician: MARIE MONTELONGO Quality: Good Procedures: Transthoracic echocardiogram with complete 2D, M-Mode, and doppler examination. Indications: Elevated BNP. 2D/M Mode Doppler Measurement Value Normal Ranges Measurement Value Normal Ranges LVIDd 2D 4.3 3.5 - 5.6 cm AV Peak [place] 1.2 m/sec LVIDs 2D 2.3 2.1 - 4.1 cm AV Peak PG 6.0 mmHg LVPWd 2D 1.0 0.6 - 1.1 cm LVOT Peak [place] 1.0 m/sec IVSd 2D 1.0 0.6 - 1.1 cm LVOT Peak PG 3.8 mmHg AoR Diam 2D 2.8 2.0 - 3.7 cm MV E Peak [place] 0.8 m/sec EDV 2D 85.3 cm3 MV A Peak [place] 0.9 m/sec ESV 2D 11.7 cm3 MV E/A 0.9 LA Dimen 2D 3.3 2.3 - 4.0 cm MV Decel Time 187 msec MV Decel [place] 4 MV E/A 0.9 Findings Left Ventricle: Normal left ventricular systolic function. Normal left ventricular cavity size. Normal left ventricular wall thickness. Ejection fraction is visually estimated at 60 %. Tissue Doppler/Mitral Doppler indices are consistent with impaired relaxation (Stage I diastolic dysfunction). Right Ventricle: Normal right ventricular size. Normal right ventricular systolic function. Left Atrium: The left atrium is normal in size. Right Atrium: The right atrium is normal in size. Mitral Valve: Normal appearance and function of the mitral valve with trace physiologic regurgitation. Aortic Valve: No significant aortic stenosis or insufficiency. Aortic cusps appear mildly calcified. Tricuspid Valve: Normal appearance of the tricuspid valve. Unable to obtain RVSP due to minimal presence of tricuspid regurgitation. Pulmonic Valve: Normal pulmonic valve appearance. Pericardium: Normal pericardium with no significant pericardial effusion. Aorta: Normal aortic root. IVC: Normal size and normal respiratory collapse consistent with normal right atrial pressure. Conclusions 1.Normal left ventricular systolic function. Normal left ventricular cavity size. Normal left ventricular wall thickness. Ejection fraction is visually estimated at 60 %. Tissue Doppler/Mitral Doppler indices are consistent with impaired relaxation (Stage I diastolic dysfunction). 2.Normal appearance and function of the mitral valve with trace physiologic regurgitation. 3.No significant aortic stenosis or insufficiency. Aortic cusps appear mildly calcified. 4.Normal appearance of the tricuspid valve. Unable to obtain RVSP due to minimal presence of tricuspid regurgitation. Electronically Signed By: Arpan Mares 11-Jun-2017 14:29:53 -0800 Patient Name: GIRISH APARICIO Study Date: 11-Jun-2017 [id number]
[2017-06-11 20:08] VITALS: PULSE 89
[2017-06-11] MEDS ORDERED: ATORVASTATIN 10 MG TAB PO SCH (21:00)
[2017-06-12 14:04] LABS: ANA SCREEN NEGATIVE (NEGATIVE)
== END 2017-06-11 19:00 | disposition home or self-care (01) ==
LOC: E/R 16:00 → INTOOBSV 22:06 → MS3 22:06 → E/R 23:49
PROVIDERS: ADMIT Family Medicine; ATTEND Family Medicine
DX: I82.442 Acute embolism and thrombosis of left tibial vein (principal); E11.9 Type 2 diabetes mellitus without complications; I10 Essential (primary) hypertension; Z79.84 Long term (current) use of oral hypoglycemic drugs
CPT/HCPCS: 36415; 71010; 71275; 73610; 73630; 80053; 81003; 82378; 82550; 82553; 82962; 83880; 84484; 85025; 85378; 85610; 85730; 86038; 93005; 93306; 93970; 96372; 99285; J1650; J1815; J2270; Q9967; Z7500; Z7610; 99217; G0378

== ENCOUNTER 2017-07-18 00:04 | Emergency (ER) | END 2017-07-18 05:56 | disposition home or self-care (01) ==

== ENCOUNTER 2017-08-05 18:12 | Emergency (ER) | END 2017-08-05 19:21 | disposition left against medical advice (07) ==

== ENCOUNTER 2017-08-12 09:44 | Emergency (ER) | END 2017-08-12 21:19 | disposition home or self-care (01) ==